=== PATIENT | male | born 1945 | race American Indian/Alaskan Native ===

== ENCOUNTER 2019-11-16 08:18 | Day surgery (SDC) | payer MEDICARE, BC, OTHER ==
[~2019-11-16] VITALS: Ht 175.3 cm; Wt 102.0 kg
[~2019-11-16 08:18] MED LIST: ATOR20 PO; AZELASTINE137 MCG/0. INH; Aspirin EC81 MG PO; CLAR500; CLOP75 PO; Hydrocodone-Ap1 EA23 PO; Isosorbide Mono30 MG PO; LEVSOD137 PO; Omeprazole20 M1 PO; PRED20 PO
--- NOTE | 2019-11-16 10:39 | NUR ---
1015 PATIENT RETURNED TO THE [facility]/P HEART CATH. WILL BE TRANSFERED FOR CABG CONSULT. TRANSFER INITIATED AND WAITING FOR ACCEPTANCE TO [facility]. PATIENT WILL NOTIFY FAMILY. VVS. PATIENT IN A RECLINER. CALL LIGHT IN REACH. MONITOR IN PLACE AND TR BAND TO THE RIGTH RADIAL WITH 13 ML OF AIR IN THE BAND.
--- NOTE | 2019-11-16 12:20 | NUR ---
1210 BEGAN RELEASING AIR FROM THE TR BAND, AFTER SECOND AMOUNT OF AIR RELEASED, BLEEDING NOTED. REPLACED 6 ML OF AIR AND WAITED 20 MINUTES. SITE CLEANED OF BLOOD AND PATIENT TEACHING DONE.
--- NOTE | 2019-11-16 13:53 | NUR ---
ROOM ASSIGNMENT AND ACCEPTING PHYSICIAN ASSIGNED AT [facility]. DR. ONEIL AT THE BEDSIDE AND SPOKE WITH THE PATIENT, BROTHER (VIA FACETIME) AND SISTER IN LAW AT THE BEDSIDE. DR. ONEIL EXPLAINED ALL THE RESULTS FROM THE HEART CATH THIS A.M. ALL QUESTIONS ANSWERED.
--- NOTE | 2019-11-16 14:21 | NUR ---
REPORT CALLED TO CHARLENE AT [facility] FOR TRANSFER TO ROOM 4425. ALL QUESTIONS ASKED FOR PATIENT FAMILY REGARDING VISITATION DURING COVID -19 PRECAUTIONS. TRANSFER PAPERWORK COMPLETED. BELONGINGS OF PATIENT (CLOTHES, SHOES) SENT HOME WITH SANAZ SISTER IN LAW. WAITING FOR [facility] FOR TRANSFER.
--- NOTE | 2019-11-16 14:56 | NUR ---
PATIENT LEFT AT 1452 WITH [facility]. NO PAIN. TR BAND FLAT ON RIGHT RADIAL, LEFT INPLACE WITH WHITE ARM BOARD ON. TRANSFERED ON MONITOR. SALINE LOCKED.
--- NOTE | 2019-11-16 14:56 | NUR ---
PHONE FAMILY TO INFORM THEM OF TRANSFER TIME.
== END 2019-11-16 15:00 | disposition short-term general hospital (02) ==
LOC: MHTC 08:18
PROC: 4A023N7 Measurement of Cardiac Sampling and Pressure, Left Heart, Percutaneous Approach (ICD-10-PCS; principal; 2019-11-16)
PROC: B201YZZ Plain Radiography of Multiple Coronary Arteries using Other Contrast (ICD-10-PCS; principal; 2019-11-16)
DX: I25.110 Atherosclerotic heart disease of native coronary artery with unstable angina pectoris (principal); Z88.2 Allergy status to sulfonamides; E78.00 Pure hypercholesterolemia, unspecified; E78.5 Hyperlipidemia, unspecified; I12.9 Hypertensive chronic kidney disease with stage 1 through stage 4 chronic kidney disease, or unspecified chronic kidney disease; N18.9 Chronic kidney disease, unspecified; E66.01 Morbid (severe) obesity due to excess calories; E03.9 Hypothyroidism, unspecified; Z79.82 Long term (current) use of aspirin; Z79.899 Other long term (current) drug therapy; Z87.891 Personal history of nicotine dependence; Z68.33 Body mass index [BMI] 33.0-33.9, adult; Z20.828 Contact with and (suspected) exposure to other viral communicable diseases
CPT/HCPCS: 76937; 85347; 93458; 93571; 99152; 99153; C1769; C1887; C1894; J1644; J2250; J3010; J7030; Q9967; U0003

== ENCOUNTER 2019-12-06 10:58 | Emergency (ER) | payer OTHER, MEDICARE, BC ==
[~2019-12-06] VITALS: Ht 180.3 cm; Wt 93.4 kg
[2019-12-06 12:16] LABS: BASOPHILS ABSOLUTE AUTO 0.04 K/mm3 (0.00-0.23); BASOPHILS PERCENT AUTO 0 % (0-2); EOSINOPHILS ABSOLUTE AUTO 0.16 K/mm3 (0.00-0.68); EOSINOPHILS PERCENT AUTO 1 % (0-6); Hematocrit 25.4 % (37.0-53.0); Hemoglobin 7.8 g/dL (13.5-17.5); IMMATURE GRAN ABSOLUTE AUTO 0.18 K/mm3 (0.00-0.10); IMMATURE GRAN PERCENT AUTO 1 % (0-1); LYMPHOCYTES ABSOLUTE AUTO 1.07 K/mm3 (0.84-5.20); LYMPHOCYTES PERCENT AUTO 7 % (21-46); MONOCYTES PERCENT AUTO 8 % (4-13); Mean Corpuscular HGB 27.9 pg (26.0-34.0); Mean Corpuscular HGB Conc 30.7 g/dL (31.5-36.5); Mean Corpuscular Volume 91 fL (80-100); Mean Platelet Volume 11.8 fL (9.1-12.4); NEUTROPHILS ABSOLUTE AUTO 13.03 K/mm3 (1.96-9.15); NEUTROPHILS PERCENT AUTO 83 % (41-73); NRBC ABSOLUTE 0.05 K/mm3 (0.00-0.02); NRBC Auto 0.3 /100 WBC (0.0-0.2); Platelet Count 89 K/mm3 (150-400); RDW Coefficient Variation 14.1 % (11.7-14.2); RDW Standard Deviation 47.1 fL (35.1-46.3); White Blood Cell Count 15.68 K/mm3 (4.00-11.30)
[2019-12-06] MEDS ORDERED: OXYC5 PO (12:20)
[2019-12-06 12:39] LABS: Alanine Aminotransfer (ALT/SGP 116 U/L (12-78); Albumin, Blood 2.4 g/dL (3.4-5.0); Albumin/Globulin Ratio 0.6 (0.8-1.8); Alk Phos 95 U/L (50-136); Anion Gap 8 mmol/L (6-16); Aspartate Aminotrans (AST/SGOT 91 U/L (12-37); Blood Urea Nitrogen 24 mg/dL (8-24); Bun/Creatinine Ratio 19.2 (12.0-20.0); CO2, Blood 27 mmol/L (21-32); Calcium, Blood 8.4 mg/dL (8.5-10.1); Chloride, Blood 104 mmol/L (98-108); Creatinine, Blood 1.25 mg/dL (0.60-1.20); Globulin, Blood 3.7 g/dL (2.2-4.0); Glomerular Filtration Rate 60 (60-); Glucose, Blood 107 mg/dL (70-99); Sodium, Blood 139 mmol/L (136-145); Total Protein, Blood 6.1 g/dL (6.4-8.2); Troponin I <0.015 ng/mL (0.000-0.040)
[2019-12-06] MEDS ORDERED: ISOSORBIDE MONO30 MG PO (12:55)
[2019-12-06 14:05] LABS: International Normalized Ratio 1.12; Prothrombin Time Results 11.9 Sec (9.7-11.5)
== END 2019-12-06 14:59 | disposition short-term general hospital (02) ==
LOC: ER 10:58
PROVIDERS: Emergency Medicine
DX: I70.202 Unspecified atherosclerosis of native arteries of extremities, left leg (principal); I82.402 Acute embolism and thrombosis of unspecified deep veins of left lower extremity; D64.9 Anemia, unspecified; Z20.828 Contact with and (suspected) exposure to other viral communicable diseases; Z98.890 Other specified postprocedural states; Z88.2 Allergy status to sulfonamides; Z79.02 Long term (current) use of antithrombotics/antiplatelets; Z79.82 Long term (current) use of aspirin; Z79.899 Other long term (current) drug therapy
CPT/HCPCS: 36415; 71046; 80053; 83880; 84484; 85025; 85610; 85730; 93005; 93010; 93926; 93971; 96365; 99285-25; J1644; U0003

== ENCOUNTER 2024-10-28 08:16 | Day surgery (SDC) | payer MEDICARE, BC ==
[~2024-10-28] VITALS: Ht 172.7 cm; Wt 98.9 kg
[~2024-10-28 08:16] MED LIST changes: +FAMO20 PO; +GABA300 PO; +ISOSORBIDE MONO30 MG PO; +JARDIANCE10 MG PO; +KLOR-CON 1010 ME9 PO; +Lisinopril2.5 MG PO; +METO25ER PO; +OXYC5 PO; +WARF2.5 PO; +WARF5 PO
[2024-10-28 08:45] VITALS: BP 132/86
--- NOTE | 2024-10-28 08:53 | NUR ---
Ambulatory in Day Surgery History, Chart, Medications and Allergies reviewed before start of procedure. Pre-Op teaching done. Pt verbalizes understanding. Patient States Post-Procedure ride home has been arranged.
--- NOTE | 2024-10-28 09:14 | NUR ---
10/28/24 0914 Delroy Huston MONITOR INTACT WITH CONTINUOUS PULSE OXIMETRY, CONTINUOUS END TITAL CO2, 3-LEAD EKG AND INTERMITTENT BLOOD PRESSURE. O2 VIA POM INTACT THROUGHOUT SEDATION/PROCEDURE.
[2024-10-28 09:38] VITALS: BP 108/66
[2024-10-28 09:45] VITALS: BP 116/83
--- NOTE | 2024-10-28 09:50 | NUR ---
TO STEP POST COLONOSCOPY. DROWSY, AWAKES EASILY. DENIES PAIN, NAUSEA, SOB. PAYAL PO WELL. VERBALIZED UNDERSTANDING OF DC INSTRUCTIONS. DC'D IV INTACT.
[2024-10-28 09:51] VITALS: BP 101/77
--- NOTE | 2024-10-28 10:08 | NUR ---
DC'D VIA WC TO PRIVATE CAR WITH POWDER MONKEY.
== END 2024-10-28 10:00 | disposition home or self-care (01) ==
LOC: ORSCMMR 08:16 → ORD 09:45 → ORSCMMR 10:00
PROVIDERS: Surgery
PROC: 0DBL8ZX Excision of Transverse Colon, Via Natural or Artificial Opening Endoscopic, Diagnostic (ICD-10-PCS; principal; 2024-10-28 09:45)
PROC: 0DBK8ZX Excision of Ascending Colon, Via Natural or Artificial Opening Endoscopic, Diagnostic (ICD-10-PCS; principal; 2024-10-28 09:45)
PROC: 0DBH8ZX Excision of Cecum, Via Natural or Artificial Opening Endoscopic, Diagnostic (ICD-10-PCS; principal; 2024-10-28 09:45)
DX: Z12.11 Encounter for screening for malignant neoplasm of colon (principal); D12.0 Benign neoplasm of cecum; D12.2 Benign neoplasm of ascending colon; D12.3 Benign neoplasm of transverse colon; K57.30 Diverticulosis of large intestine without perforation or abscess without bleeding; Z86.0100 Personal history of colon polyps, unspecified; E78.5 Hyperlipidemia, unspecified; E03.9 Hypothyroidism, unspecified; I48.91 Unspecified atrial fibrillation; I10 Essential (primary) hypertension; K21.9 Gastro-esophageal reflux disease without esophagitis; I25.10 Atherosclerotic heart disease of native coronary artery without angina pectoris; F09 Unspecified mental disorder due to known physiological condition; Z79.84 Long term (current) use of oral hypoglycemic drugs; Z79.01 Long term (current) use of anticoagulants; Z79.899 Other long term (current) drug therapy
CPT/HCPCS: 88305; J2704; J7120